=== PATIENT | male | born 1990 | race Caucasian/White ===

== ENCOUNTER 2023-03-24 12:36 | Outpatient (CLI) | payer OTHER, SELFPAY ==
[2023-03-24 19:00] LABS: Basophils Absolute Auto 0.1 K/mm3 (0.0-0.1); Basophils Percent Auto 1.3 % (0.2-1.2); Eosinophils Absolute Auto 0.5 K/mm3 (0-0.3); Eosinophils Percent Auto 7.8 % (0-4.4); Hematocrit 42.9 % (42.0-52.0); Hemoglobin 14.6 g/dL (14.0-18.0); Immature Granulocyte Absolute 0.01 K/mm3 (0.00-0.031); Immature Granulocyte Percent A 0.2 % (0-0.5); Lymphocytes Percent Auto 37.6 % (18.3-44.2); Mean Corpuscular Volume 88.3 fl (80-100); Mean Platelet Volume 9.3 fl (7.4-10.4); Monocytes Absolute Auto 0.4 K/mm3 (0.1-0.6); Monocytes Percent Auto 6.5 % (2.6-8.5); Neutrophils Absolute Auto 2.9 K/mm3 (1.3-6.7); Neutrophils Percent Auto 46.6 % (45.5-73.1); Platelet Count Result 274 k/mm3 (150-375); Red Blood Count 4.86 M/mm3 (4.6-6.20); Red Cell Distribution Width 12.6 % (11.5-14.5); White Blood Count 6.1 K/mm3 (4.5-10.0)
[2023-03-24 19:46] LABS: Alanine Aminotransferase 24 U/L (6-50); Albumin Level 4.2 g/dL (3.5-5.1); Alkaline Phosphatase 64 U/L (38-126); Anion Gap 5 mmol/L (8-16); Aspartate Amino Transferase 28 U/L (17-59); Bilirubin,Total 0.6 mg/dL (0.2-1.3); Blood Urea Nitrogen 11 mg/dL (9-20); Calcium 8.8 mg/dL (8.4-10.2); Carbon Dioxide 31 mmol/L (22-30); Chloride 105 mmol/L (98-107); Estimated Glomerular Filt Rate > 60; Glucose 89 mg/dL (65-110); Potassium 4.6 mmol/L (3.4-5.0); Sodium 141 mmol/L (137-145)
[2023-03-24 20:33] LABS: Hemoglobin A1C 5.5 % (<5.7)
== END 2023-03-24 12:37 | disposition home or self-care (01) ==
LOC: ANHGOSHLAB 12:38
PROVIDERS: PCP Family Medicine; Visit Provider Family Medicine
DX: D64.9 Anemia, unspecified (principal); E46 Unspecified protein-calorie malnutrition; E55.9 Vitamin D deficiency, unspecified; F10.10 Alcohol abuse, uncomplicated; R53.83 Other fatigue; R73.9 Hyperglycemia, unspecified; R74.8 Abnormal levels of other serum enzymes; Z13.220 Encounter for screening for lipoid disorders
CPT/HCPCS: 36415; 80053; 83036; 84439; 84443; 85025

== ENCOUNTER 2023-06-05 11:09 | Emergency (ER) | payer OTHER, SELFPAY ==
--- NOTE | ~2023-06-05 | XR_ITS ---
EXAMINATION: XR foot RT min 3V DATE: 06/05/2023 11:27 INDICATION: Right heel pain post injury TECHNIQUE: Dorsoplantar, two oblique and lateral views of the right foot were obtained. COMPARISON: None. FINDINGS: Alignment is normal. No fracture. Joint spaces are normal. Soft tissues are unremarkable. IMPRESSION: 1. Negative right foot radiographs. Reviewed, dictated and finalized at location A.
[2023-06-05 11:17] VITALS: BP 89/72; PULSE 87; RESP 16; TEMP 36.4; O2SAT 100
--- NOTE | 2023-06-05 11:37 | ED.LOWEXIN ---
HPI - Extremity Injury (Lower) General Chief Complaint: Extremity Injury, Lower Stated Complaint: Injured Right foot Time Seen by Provider: 06/05/23 11:40 Source: patient Mode of arrival: ambulatory Limitations: no limitations History of Present Illness HPI Narrative: 32 y/o male presented for c/o pain to the right foot after injury yesterday. States he was angry and struck the right foot down forcefully onto the floor, hitting the heel on the ground. Took Tylenol without much relief. Pain is 4 at rest, 7 with movement, 9 with walking. Reports inability to bear weight. Denies deformity, swelling, bruising, or numbness, tingling or weakness. Related Data Home Medications Medication Instructions Recorded Confirmed bupropion HCl 300 mg 24 hr tablet, 300 mg PO DAILY 06/05/23 06/05/23 extended release disulfiram 250 mg tablet 250 mg PO DIRECTED 06/05/23 06/05/23 gabapentin 300 mg capsule 300 mg PO TID 06/05/23 06/05/23 hydroxyzine pamoate 50 mg capsule 50 mg PO QID 06/05/23 06/05/23 methylphenidate HCl 36 mg 36 mg PO DAILY 06/05/23 06/05/23 tablet,extended release 24 hr (Concerta) naltrexone 50 mg tablet 50 mg PO DAILY 06/05/23 06/05/23 Allergies Allergy/AdvReac Type Severity Reaction Status Date / Time No Known Allergies Allergy Verified 06/05/23 11:25 Review of Systems Review of Systems: CONSTITUTIONAL: Denies body aches, fever, chills EYES: Denies visual changes ENT: Denies rhinorrhea, congestion CARDIOVASCULAR: Denies chest pain, palpitations, or edema. RESPIRATORY: Denies cough or dyspnea. GASTROINTESTINAL: Denies abdominal pain, nausea, vomiting, or diarrhea. SKIN: Denies rash, itching, or wounds. MUSCULOSKELETAL: reports right foot pain Denies back pain, joint pain, or myalgia. NEUROLOGIC: Denies headache, numbness, tingling, or weakness. All systems reviewed & are unremarkable except as noted in HPI and below PMFSH Past Medical History Medical History ADHD Anxiety Depression Migraine Family History Family History Sibling Asthma Grandparent Alcoholism Grandparent Cerebrovascular accident Mother Anxiety and depression Social History Social History Smoking packs per day: 1 Smoking cigarettes per day: 20.0 Years smoked: 11 Smoking pack-years: 11.00 Smoking status: Current every day smoker Tobacco type: cigarettes Alcohol intake: former Substance use: former Substance use type: marijuana, crack/cocaine and hallucinogens Other substance usage details: nothing since coming out of rehab Lack of Transportation: No Lack of Food: Never True Current Housing: I Have Housing Concerned About Future Housing: No Difficulty Paying Gas/Electric Bills: No Difficulty Paying for Meds: YES Currently Unemployed: YES Education: Bachelor's Degree Difficulty w/ Childcare or Family Care: No Comments At time of signature, I have reviewed and agree with nursing past medical, surgical, social and family history unless otherwise noted. Please see nursing chart for further information. There is no relevant family history pertinent to the presenting complaint Exam Narrative: GENERAL: Appears in some pain, in no acute distress. HEAD: Normocephalic, atraumatic. EYES: conjunctivae clear CHEST: Speaks in full sentences. No respiratory distress. HEART: Regular rate and rhythm. Normal and equal peripheral pulses. EXTREMITIES: Pain with palpation to the plantar surface of the heel, and wrapping around the posterior ankle. Right foot has normal strength and sensation, reports slightly limited range of motion at the ankle due to pain with movement. No swelling, redness, or ecchymosis, No open wounds, or obvious deformity; alignment normal, pulse palpable and equal bilaterally, skin warm, dry, pink. Ca
== END 2023-06-05 11:53 | disposition home or self-care (01) ==
PROVIDERS: Emergency Provider Nurse Practitioner Family; PCP Family Medicine
DX: M79.671 Pain in right foot (principal); F41.9 Anxiety disorder, unspecified; F32.A Depression, unspecified; F17.210 Nicotine dependence, cigarettes, uncomplicated
CPT/HCPCS: 73630; 99213; G0463

== ENCOUNTER 2023-07-06 17:17 | Emergency (ER) | payer OTHER, SELFPAY ==
[2023-07-06 17:25] VITALS: BP 114/75; PULSE 80; RESP 16; TEMP 36.8; O2SAT 100
--- NOTE | 2023-07-06 17:30 | ED.EXTPRO ---
HPI - Extremity Problem General Chief complaint: Extremity Problem,Nontraumatic Stated complaint: LOSING FEELING IN FEET AND LOWER LEGS Time Seen by Provider: 07/06/23 17:40 Mode of arrival: ambulatory Limitations: no limitations History of Present Illness HPI Narrative: 32-year-old male presents concern for bilateral numbness and tingling in his lower extremities. He reports started 2 weeks ago in the pedal aspect of both feet, has spread to the top of the feet in towards the ankles since that time. He denies any injury or trauma. He denies any back pain. He denies loss of bowel or bladder function, perianal anesthesia. You he denies redness, warmth. Reports mild swelling in the left ankle. Patient has a history of significant alcohol and drug abuse, he is currently sober and has a gabapentin prescription that he uses p.r.n. for cravings. MD Complaint: other (numbness and tingling) Related Data Home Medications Medication Instructions Recorded Confirmed bupropion HCl 300 mg 24 hr tablet, 300 mg PO DAILY 06/05/23 07/06/23 extended release disulfiram 250 mg tablet 250 mg PO DIRECTED 06/05/23 07/06/23 gabapentin 300 mg capsule 300 mg PO TID 06/05/23 07/06/23 hydroxyzine pamoate 50 mg capsule 50 mg PO QID 06/05/23 07/06/23 naltrexone 50 mg tablet 50 mg PO DAILY 06/05/23 07/06/23 Allergies Allergy/AdvReac Type Severity Reaction Status Date / Time No Known Allergies Allergy Verified 07/06/23 17:37 Review of Systems Review of Systems: CONSTITUTIONAL: Denies malaise, chills, sweats, or fever. CARDIOVASCULAR: Denies chest pain, palpitations, or edema. RESPIRATORY: Denies cough or dyspnea. SKIN: Denies rash or itching. Denies redness, warmth, open skin MUSCULOSKELETAL: Denies back pain, joint pain, or myalgia. Reports bilateral numbness and tingling in feet, ankles NEUROLOGIC: Denies weakness, or headache. All systems reviewed & are unremarkable except as noted in HPI and below PMFSH Past Medical History Medical History ADHD Anxiety Depression Migraine Family History Family History Sibling Asthma Grandparent Alcoholism Grandparent Cerebrovascular accident Mother Anxiety and depression Social History Social History Smoking packs per day: 1 Smoking cigarettes per day: 20.0 Years smoked: 11 Smoking pack-years: 11.00 Smoking status: Current every day smoker Tobacco type: cigarettes Alcohol intake: former Substance use: former Substance use type: marijuana, crack/cocaine and hallucinogens Other substance usage details: nothing since coming out of rehab Lack of Transportation: No Lack of Food: Never True Current Housing: I Have Housing Concerned About Future Housing: No Difficulty Paying Gas/Electric Bills: No Difficulty Paying for Meds: YES Currently Unemployed: YES Education: Bachelor's Degree Difficulty w/ Childcare or Family Care: No Comments At time of signature, agree with nursing past medical, surgical, social and family history. There is no relevant family history pertinent to the presenting complaint Exam Narrative: GENERAL: Well-appearing, well-nourished, and in no acute distress. HEAD: Normocephalic, atraumatic. EYES: PERRLA, sclera clear, and EOMI ENT: Nares clear. Mucous membranes moist. NECK: Supple. CHEST: No respiratory distress. Speaks in full sentences. HEART: Regular rate and rhythm. Normal peripheral pulses. EXTREMITIES: Normal range of motion. Normal strength, decreased sensation in bilateral feet. Mild lateral ankle edema on the left extremity SKIN: Warm, dry, no visible rash, no erythema, warmth, tenderness. NEURO: Alert and oriented x3. PSYCH: Normal mood and affect Course Course Emergency Course: Patient was advised to follow-up with his primar
== END 2023-07-06 17:50 | disposition home or self-care (01) ==
PROVIDERS: Emergency Provider Nurse Practitioner; PCP Family Medicine
DX: R20.0 Anesthesia of skin (principal); R20.2 Paresthesia of skin; F17.210 Nicotine dependence, cigarettes, uncomplicated; F41.9 Anxiety disorder, unspecified; F32.A Depression, unspecified
CPT/HCPCS: 99213; G0463

== ENCOUNTER 2023-07-11 18:31 | Emergency (ER) | payer OTHER, SELFPAY ==
[2023-07-11 19:28] VITALS: BP 116/68; PULSE 90; RESP 15; TEMP 36.8; O2SAT 100
--- NOTE | 2023-07-12 00:44 | PC.NURSE ---
patient informs this RN that he is going home and will come back tomorrow to be seen. Patient ambulates out of the waiting room without incident.
== END 2023-07-12 00:44 | disposition left against medical advice (07) ==
PROVIDERS: PCP Family Medicine
DX: Z53.21 Procedure and treatment not carried out due to patient leaving prior to being seen by health care provider (principal)
CPT/HCPCS: 99199

== ENCOUNTER 2023-07-12 13:52 | Emergency (ER) | payer OTHER, SELFPAY ==
[2023-07-12 14:17] VITALS: BP 102/61; PULSE 76; RESP 18; TEMP 36.8; O2SAT 100
--- NOTE | 2023-07-12 18:10 | ED.EXTPRO ---
HPI - Extremity Problem General Chief complaint: Extremity Problem,Nontraumatic Stated complaint: leg numbness bilateral Time Seen by Provider: 07/12/23 16:55 Source: patient Mode of arrival: ambulatory Limitations: no limitations History of Present Illness HPI Narrative: Patient is a 32-year-old male who presents to the ED with report of abnormal sensation to his bilateral lower extremities. Patient reports over the last 3 to 4 weeks, he feels he has had decreased sensation/[id number] in extremities at times. He states that it is slightly better in the morning, but worsens throughout the day after being on his feet. He states it began in his feet, but has began to spread up to his lower legs and also slightly into his fingertips. He states at times he feels he has trouble walking like his legs are not even underneath of him. Denies weakness or significant pain, though reports occasionally has a sensation of muscle fatigue in his legs. Denies wounds, fevers, injury. Patient does mention when the symptoms began is when he began more heavily using recreational nitrous oxide. He denies any other drug use. He does mention previous history of alcoholism, but states he has been sober for the last 5 months. Related Data Home Medications Medication Instructions Recorded Confirmed bupropion HCl 300 mg 24 hr tablet, 300 mg PO DAILY 06/05/23 07/06/23 extended release disulfiram 250 mg tablet 250 mg PO DIRECTED 06/05/23 07/06/23 gabapentin 300 mg capsule 300 mg PO TID 06/05/23 07/06/23 hydroxyzine pamoate 50 mg capsule 50 mg PO QID 06/05/23 07/06/23 naltrexone 50 mg tablet 50 mg PO DAILY 06/05/23 07/06/23 Allergies Allergy/AdvReac Type Severity Reaction Status Date / Time No Known Allergies Allergy Verified 07/11/23 19:31 Review of Systems Review of Systems: CONSTITUTIONAL: Denies fever, chills, or sweats. CARDIOVASCULAR: Denies chest pain. RESPIRATORY: Denies dyspnea. SKIN: See HPI. MUSCULOSKELETAL: See HPI. NEUROLOGIC: See HPI. All systems reviewed & are unremarkable except as noted in HPI and below PMFSH Past Medical History Medical History ADHD Anxiety Depression Migraine Family History Family History Sibling Asthma Grandparent Alcoholism Grandparent Cerebrovascular accident Mother Anxiety and depression Social History Social History Smoking packs per day: 1 Smoking cigarettes per day: 20.0 Years smoked: 11 Smoking pack-years: 11.00 Smoking status: Current every day smoker Tobacco type: cigarettes Alcohol intake: former Substance use: former Substance use type: marijuana, crack/cocaine and hallucinogens Other substance usage details: nothing since coming out of rehab Lack of Transportation: No Lack of Food: Never True Current Housing: I Have Housing Concerned About Future Housing: No Difficulty Paying Gas/Electric Bills: No Difficulty Paying for Meds: YES Currently Unemployed: YES Education: Bachelor's Degree Difficulty w/ Childcare or Family Care: No Exam Narrative: GENERAL: Well appearing, thin, non-toxic, in no acute distress. HEAD: Normocephalic, atraumatic. NECK: Supple. No adenopathy, no masses. RESPIRATORY: Airway patent, respirations nonlabored. Clear to auscultation bilaterally, no rales, rhonchi, wheezing. CARDIOVASCULAR: Regular rate and rhythm without murmurs, rubs, or gallops. Pedal pulses 2+ and equal bilaterally. MUSCULOSKELETAL: Moves all extremities. Strength/ROM intact without gross deformities or TTP. No edema. No calf tenderness. Sharp and dull sensation intact to lower extremities bilaterally, symmetric. Patient occasionally reported differences in sensation anterior versus lateral aspects of lower leg, though inconsistent on repeat examinations.
[2023-07-12 19:51] VITALS: BP 110/70; PULSE 75; RESP 18; O2SAT 100
== END 2023-07-12 19:52 | disposition home or self-care (01) ==
PROVIDERS: Emergency Provider Physician Assistant; PCP Family Medicine
DX: R20.2 Paresthesia of skin (principal); F18.10 Inhalant abuse, uncomplicated; F90.9 Attention-deficit hyperactivity disorder, unspecified type; F41.9 Anxiety disorder, unspecified; F32.A Depression, unspecified; F17.210 Nicotine dependence, cigarettes, uncomplicated
CPT/HCPCS: 99283

== ENCOUNTER 2023-07-18 14:40 | Outpatient (CLI) | payer OTHER, SELFPAY ==
[2023-07-18 19:22] LABS: Basophils Absolute Auto 0.1 K/mm3 (0.0-0.1); Basophils Percent Auto 0.9 % (0.2-1.2); Eosinophils Absolute Auto 0.6 K/mm3 (0-0.3); Eosinophils Percent Auto 7.3 % (0-4.4); Hematocrit 39.9 % (42.0-52.0); Hemoglobin 13.3 g/dL (14.0-18.0); Immature Granulocyte Absolute 0.01 K/mm3 (0.00-0.031); Immature Granulocyte Percent A 0.1 % (0-0.5); Lymphocytes Absolute Auto 2.08 K/mm3 (0.9-3.2); Lymphocytes Percent Auto 27.5 % (18.3-44.2); Mean Corpuscular HGB Conc 33.3 g/dl (32-36); Mean Corpuscular Hemoglobin 31.1 pg (26-34); Mean Corpuscular Volume 93.2 fl (80-100); Monocytes Absolute Auto 0.6 K/mm3 (0.1-0.6); Monocytes Percent Auto 7.8 % (2.6-8.5); Neutrophils Absolute Auto 4.3 K/mm3 (1.3-6.7); Neutrophils Percent Auto 56.4 % (45.5-73.1); Platelet Count Result 311 k/mm3 (150-375); Red Blood Count 4.28 M/mm3 (4.6-6.20); Red Cell Distribution Width 13.8 % (11.5-14.5); White Blood Count 7.6 K/mm3 (4.5-10.0)
[2023-07-18 19:53] LABS: Alanine Aminotransferase 19 U/L (6-50); Alkaline Phosphatase 51 U/L (38-126); Anion Gap 6 mmol/L (8-16); Aspartate Amino Transferase 29 U/L (17-59); Bilirubin,Total 0.3 mg/dL (0.2-1.3); Blood Urea Nitrogen 10 mg/dL (9-20); Calcium 8.9 mg/dL (8.4-10.2); Carbon Dioxide 30 mmol/L (22-30); Chloride 105 mmol/L (98-107); Estimated Glomerular Filt Rate > 60; Glucose 80 mg/dL (65-110); Phosphorus 4.1 mg/dL (2.5-4.5); Potassium 4.4 mmol/L (3.4-5.0); Sodium 141 mmol/L (137-145)
[2023-07-18 19:55] LABS: Iron 72 ug/dL (49-181)
[2023-07-18 20:13] LABS: Percent Iron Saturation 29 % (20-50)
[2023-07-18 21:00] LABS: Folic Acid > 20.0 ng/mL (2.76->20); Vitamin B12 > 1000.0 pg/mL (239-931)
[2023-07-20 21:37] LABS: Vitamin D 25 Hydroxy 48.9 ng/mL
[2023-07-23 12:42] LABS: Vitamin B6 46.5 ng/mL (2.1-21.7)
== END 2023-07-18 14:41 | disposition home or self-care (01) ==
LOC: ANHGOSHLAB 14:42
PROVIDERS: PCP Family Medicine; Visit Provider Clinical Nurse Specialist
DX: D64.9 Anemia, unspecified (principal); E46 Unspecified protein-calorie malnutrition; E55.9 Vitamin D deficiency, unspecified; F10.10 Alcohol abuse, uncomplicated; R53.83 Other fatigue; R73.9 Hyperglycemia, unspecified; R74.8 Abnormal levels of other serum enzymes; Z13.220 Encounter for screening for lipoid disorders
CPT/HCPCS: 36415; 80053; 82306; 82607; 82728; 82746; 83540; 83550; 83735; 84100; 84207; 85025

== ENCOUNTER 2023-08-08 08:20 | Outpatient (CLI) | payer OTHER, SELFPAY ==
[2023-08-08 19:42] LABS: Cholesterol 157 mg/dL (0-200); HDL Direct 36 mg/dL; Triglycerides 75 mg/dL (<150)
[2023-08-08 19:52] LABS: LDL Cholesterol Direct 98 mg/dL; Transferrin 184 mg/dL (206-381)
[2023-08-08 19:56] LABS: Alanine Aminotransferase 27 U/L (6-50); Albumin Level 4.5 g/dL (3.5-5.1); Alkaline Phosphatase 54 U/L (38-126); Anion Gap 6 mmol/L (8-16); Aspartate Amino Transferase 32 U/L (17-59); Bilirubin,Total 0.7 mg/dL (0.2-1.3); Blood Urea Nitrogen 12 mg/dL (9-20); Calcium 9.5 mg/dL (8.4-10.2); Carbon Dioxide 29 mmol/L (22-30); Chloride 105 mmol/L (98-107); Estimated Glomerular Filt Rate > 60; Glucose 87 mg/dL (65-110); Potassium 4.2 mmol/L (3.4-5.0); Sodium 140 mmol/L (137-145)
[2023-08-08 20:34] LABS: Hepatitis B Surface Antigen Negative (Negative)
[2023-08-08 20:39] LABS: HAV RESULT Negative (Negative); Hepatitis B Core IgM Result Negative (Negative)
[2023-08-08 20:47] LABS: Basophils Absolute Auto 0.1 K/mm3 (0.0-0.1); Basophils Percent Auto 1.4 % (0.2-1.2); Eosinophils Absolute Auto 0.3 K/mm3 (0-0.3); Hematocrit 44.1 % (42.0-52.0); Hemoglobin 14.7 g/dL (14.0-18.0); Immature Granulocyte Absolute 0.01 K/mm3 (0.00-0.031); Immature Granulocyte Percent A 0.2 % (0-0.5); Lymphocytes Absolute Auto 2.15 K/mm3 (0.9-3.2); Lymphocytes Percent Auto 42.7 % (18.3-44.2); Mean Corpuscular HGB Conc 33.3 g/dl (32-36); Mean Corpuscular Hemoglobin 30.6 pg (26-34); Mean Corpuscular Volume 91.7 fl (80-100); Mean Platelet Volume 10.3 fl (7.4-10.4); Monocytes Absolute Auto 0.3 K/mm3 (0.1-0.6); Monocytes Percent Auto 6.4 % (2.6-8.5); Neutrophils Absolute Auto 2.2 K/mm3 (1.3-6.7); Neutrophils Percent Auto 44.3 % (45.5-73.1); Platelet Count Result 332 k/mm3 (150-375); Red Blood Count 4.81 M/mm3 (4.6-6.20); Red Cell Distribution Width 12.6 % (11.5-14.5)
[2023-08-08 20:51] LABS: Hepatitis C Virus Antibody Negative (Negative)
[2023-08-08 21:28] LABS: Hemoglobin A1C 4.9 % (<5.7)
[2023-08-10 18:46] LABS: Methylmalonic Acid 96 nmol/L (87-318)
[2023-08-11 10:05] LABS: SS-A <1.0; SS-B <1.0
[2023-08-11 11:20] LABS: Homocysteine 44.9 umol/L (<11.4)
[2023-08-11 12:52] LABS: Vitamin B6 28.7 ng/mL (2.1-21.7)
[2023-08-12 03:05] LABS: Zinc 87 mcg/dL (60-130)
[2023-08-13 06:25] LABS: Vitamin B1 8 nmol/L (8-30)
== END 2023-08-08 08:21 | disposition home or self-care (01) ==
LOC: ANHGOSHLAB 08:23
PROVIDERS: PCP Family Medicine; Visit Provider Student in an Organized Health Care Education/Training Program
DX: G62.9 Polyneuropathy, unspecified (principal); Z13.220 Encounter for screening for lipoid disorders; R74.8 Abnormal levels of other serum enzymes; E46 Unspecified protein-calorie malnutrition; D64.9 Anemia, unspecified; F10.10 Alcohol abuse, uncomplicated; E55.9 Vitamin D deficiency, unspecified; R73.9 Hyperglycemia, unspecified; R53.83 Other fatigue
CPT/HCPCS: 36415; 80053; 80061; 80074; 82525; 83036; 83090; 83921; 84207; 84425; 84443; 84466; 84590; 84630; 85025; 86235; 86334; 86335

== ENCOUNTER 2023-08-30 10:09 | Outpatient (CLI) | payer OTHER, SELFPAY ==
--- NOTE | 2023-08-30 11:00 | NEURO_ITS ---
Impression: # Complains of numbness of hands and feet for about 3 months with no history of acute illness. # Neuropathy involving lower extremities more than upper extremities, motor/sensory of axonal type. # Needle/EMG exam with neurogenic changes but no active fibs or myotonia. Nerve Conduction Studies Anti Sensory Summary Table Stim Site NR Peak (ms) P-T Amp (?V) Site1 Site2 Delta-P (ms) Dist (cm) Jasper (m/s) Left Median Anti Sensory (2-3nd Digit) Wrist 4.0 58.6 Wrist 2-3nd Digit 4.0 14.0 35 Wrist 4.0 47.8 Wrist 2-3nd Digit 4.0 14.0 35 Right Median Anti Sensory (2-3nd Digit) Wrist 4.4 14.7 Wrist 2-3nd Digit 4.4 14.0 32 Wrist 4.3 44.0 Wrist 2-3nd Digit 4.4 14.0 32 Left Radial Anti Sensory (Base 1st Digit) Wrist 2.8 24.1 Wrist Base 1st Digit 2.8 0.0 Right Radial Anti Sensory (Base 1st Digit) Wrist 3.7 20.2 Wrist Base 1st Digit 3.7 0.0 Left Sup Fibular Anti Sensory (Ant Lat Mall) NO RESPONSE 14 cm NR 14 cm Ant Lat Mall 16.0 Right Sup Fibular Anti Sensory (Ant Lat Mall) 14 cm 5.3 11.6 14 cm Ant Lat Mall 5.3 16.0 30 Left Sural Anti Sensory (Lat Mall) NO RESPONSE Calf NR Calf Lat Mall 16.0 Right Sural Anti Sensory (Lat Mall) NO RESPONSE Calf NR Calf Lat Mall 16.0 Left Ulnar Anti Sensory (5th Digit) Wrist 4.3 36.0 Wrist 5th Digit 4.3 14.0 33 Right Ulnar Anti Sensory (5th Digit) Wrist 4.2 38.1 Wrist 5th Digit 4.2 14.0 33 Motor Summary Table Stim Site NR Onset (ms) O-P Amp (mV) Site1 Site2 Delta-0 (ms) Dist (cm) Jasper (m/s) Left Median Motor (Abd Poll Brev) Wrist 3.9 3.8 Elbow Wrist 6.6 34.0 52 Elbow 10.5 5.4 Right Median Motor (Abd Poll Brev) Wrist 4.4 4.6 Elbow Wrist 6.2 31.0 50 Elbow 10.6 3.0 Left Peroneal Motor (Vastus Med) NO RESPONSE Ankle NR Popit Ankle 0.0 Popit NR Right Peroneal Motor (Vastus Med) NO RESPONSE Ankle NR Popit Ankle 0.0 Popit NR Left Tibial Motor (Abd Willis Brev) Ankle 6.8 0.3 Knee Ankle 13.7 48.0 35 Knee 20.5 0.4 Right Tibial Motor (Abd Willis Brev) NO RESPONSE Ankle NR Knee Ankle 0.0 Knee NR Left Ulnar Motor (Abd Dig Minimi) Wrist 3.7 7.3 A Elbow Wrist 6.4 32.0 50 A Elbow 10.1 7.0 Right Ulnar Motor (Abd Dig Minimi) Wrist 3.4 9.4 A Elbow Wrist 6.6 31.0 47 A Elbow 10.0 8.2 B Elbow Wrist 4.6 23.0 50 B Elbow 8.0 7.8 F Wave Studies NR F-Lat (ms) L-R F-Lat (ms) Left Median (Mrkrs) (Abd Poll Brev) 33.12 0.33 Right Median (Mrkrs) (Abd Poll Brev) 33.45 0.33 Left Peroneal (Mrkrs) (EDB) NO RESPONSE NR Right Peroneal (Mrkrs) (EDB) NO RESPONSE NR Left Tibial (Mrkrs) (Abd Hallucis) 68.07 2.92 Right Tibial (Mrkrs) (Abd Hallucis) 65.15 2.92 Left Ulnar (Mrkrs) (Abd Dig Min) 33.53 0.33 Right Ulnar (Mrkrs) (Abd Dig Min) 20.16 13.37 EMG Side Muscle Nerve Root Ins Act Fibs Amp Dur Recrt Comment Right 1stDorInt Ulnar C8-T1 Nml Nml Nml >12ms Reduced Right Ext Indicis Radial (Post Int) C7-8 Nml Nml Nml Nml Nml Right Ext Digitorum Radial (Post Int) C7-8 Nml Nml Nml Nml Nml Right BrachioRad Radial C5-6 Nml Nml Nml Nml Nml Right PronatorTeres Median C6-7 Nml Nml Nml Nml Nml
== END 2023-08-30 10:10 | disposition home or self-care (01) ==
LOC: ANHNEURO 10:11
PROVIDERS: PCP Family Medicine; Visit Provider Clinical Nurse Specialist
DX: R20.0 Anesthesia of skin (principal); G62.9 Polyneuropathy, unspecified
CPT/HCPCS: 95886; 95913

== ENCOUNTER 2023-09-06 14:00 | Outpatient (RCR) | payer OTHER, SELFPAY ==
--- NOTE | 2023-08-17 16:56 | OPREHPOC ---
Outpatient Therapy Plan of Care This is a Multidisciplinary Plan of Care that may contain components documented by all disciplines (PT, OT, and ST.) PT Problem 1 PT Problem #1 Knowledge Deficit PT Goal 1 Goal Pt to be IND with issued HEP Target Visit 4 PT Problem 2 PT Problem #2 Impaired Gait PT Goal 1 Goal Pt to improve his 2 min walk distance from 360ft to 420ft Target Visit 4 PT Goal 2 Goal Pt to ambulate with an equal stride length and with a good heel-toe pattern Target Visit 4 PT Problem 3 PT Problem #3 Impaired Strength PT Goal 1 Goal Pt to be able to demonstrate active ankle dorsiflexion in standing Target Visit 4 PT Goal 2 Goal Pt to demonstrate global ankle strenght of 4/5 Target Visit 4 PT Problem 4 PT Problem #4 Impaired Balance PT Goal 1 Goal Pt to demonstrate a 20/24 on the DGI Target Visit 4 PT Problem 5 PT Problem #5 Impaired Functional Mobil PT Goal 1 Goal Pt to be able to demonstrate a floor to stand transfer without UE support Target Visit 4 PT Goal 2 Goal pt to be able to lift and carry 30lb from ground level.
--- NOTE | 2023-08-17 16:56 | PTOPEVAL1 ---
Assessment and note entered by Suman Bustillos, PT, DPT Evaluation Information Assessment Status Evaluation Diagnosis polyneuropathy Onset 2 months Subjective Information Pt reports pola numbness and tingling in his BLE that has been progressive since the beginning of July. He states he did have an ankle sprain in may but doesnt think this is related, he does state this could be a vitamin deficiency. He states he has been to a number of doctors without any answers. He states he has numbness, decreased reflexes, and weakness throughout his legs. He states walking longer distances he will start to have difficulty walking like I forgot how to walk . He states he notices himself dragging his feet and loosing his balance. His instability increases throughout the date. He declines any falls, but a couple of near misses. He declines any back pain. Reported Pain Level Pain Score 0: Self Report Assessment PT Clinical Summary Ricardo presents to therapy today for his initial evaluation with a diagnosis of polyneuropathy. Today he demonstrates decreased LE strength with his ankles being the most affected, his ankle strength is grossly 3/5. He ambulates with a decreased gait speed, an ataxic pattern, decreased heel strike, and with arms held in high guard. He demonstrates good static balance but decreased dynamic balance. Skilled therapy services are indicated to address the balance and strengt deficits noted above, to improve mobility, and to return to PLOF. Plan of Care Interventions Check Out for Orthotic/Pr,Electrical Stimulation, Gait Training,Manual Therapy,Neuro Re-education, Patient/Caregiver Educati,Therapeutic Activities, Therapeutic Exercise PT Services Indicated Yes Treatment Frequency and 1x/wk for 4 visits, per pt request Duration These treatments will address the objective and functional deficits as defined above. The patient will be advanced safely and appropriately in order for the patient to progress towards his/her prior level of function. Additional exercises will be introduced and as well as a comprehensive home exercise program upon discharge, if needed, ?to ensure carryover of functional gains achieved in the clinic. This treatment plan has been reviewed and agreement upon by the patient.
--- NOTE | 2023-09-01 16:03 | PCPTNOTE ---
Patient reports he forgot to check his schedule and was at work.
--- NOTE | 2023-09-14 15:50 | PCPTNOTE ---
Patient did not show up for scheduled appointment this date. Called to follow up, he has been rescheduled for 09/28.
--- NOTE | 2023-09-28 09:28 | PTOPDC ---
Assessment and note entered by Suman Bustillos, PT, DPT Evaluation Information Assessment Status Discharge - Pt Not Present Diagnosis polyneuropathy Onset 2 months Subjective Information Pt did not show up to scheduled appointment this date. This was his 3rd no show and per our attendance policy he will be discharged at this time. Assessment PT Clinical Summary Pt attended 3 visits from 08/17/23 to 09/28/23. If he needs additional therapy at a later date he will need a new order.
== END 2023-09-28 10:28 | disposition home or self-care (01) ==
LOC: ANHGOSHPT 14:00
PROVIDERS: PCP Family Medicine; Visit Provider Student in an Organized Health Care Education/Training Program
DX: E53.8 Deficiency of other specified B group vitamins (principal); G32.0 Subacute combined degeneration of spinal cord in diseases classified elsewhere; G62.9 Polyneuropathy, unspecified
CPT/HCPCS: 97110; 97112; 97162; 99199

== ENCOUNTER 2023-09-25 08:40 | Outpatient (CLI) | payer OTHER, SELFPAY ==
--- NOTE | ~2023-09-25 | MR_ITS ---
MRI of the thoracic spine Clinical History: Neuropathy, vitamin B deficiency Technique: Axial T2-weighted and gradient images, and sagittal T1-weighted, T2-weighted, and STIR negar ges were acquired. Following intravenous administration of 13 cc MultiHance gadolinium, T1-weighted f at-sat imaging was performed in the axial and sagittal planes. Findings: There is no fracture or subluxation of the thoracic spine. Vertebral bodies maintain normal height and alignment. No suspicious bone marrow signal abnormality seen. No disc bulge or herniation seen at any thoracic level. There is no spinal canal stenosis or cord com pression thoracic spine. No epidural mass or collection seen. No abnormal signal seen in the spinal cord itself. Paravertebral soft tissues are unremarkable. No ab normal postcontrast enhancement identified. Impression: Unremarkable exam. Reviewed, dictated and finalized at [facility]. NG SPONGER Impression: Unremarkable exam.
--- NOTE | ~2023-09-25 | MR_ITS ---
MRI of the lumbar spine Clinical History: Group B vitamin deficiency, neuropathy Technique: Axial T2-weighted images, and sagittal T1-weighted, T2-weighted, and T2 fat-sat images wer e acquired. Following intravenous administration of 13 cc MultiHance gadolinium, T1-weighted fat-sat imaging was performed in the axial and sagittal planes. Findings: There is no fracture or subluxation of the lumbar spine. Visualized maintain normal height and alignment. No suspicious bone marrow signal abnormality seen. Intervertebral discs maintain normal signal and position throughout the lumbar spine. No disc bulge o r herniation seen in the lumbar spine. No spinal canal stenosis or neural foraminal narrowing seen at any lumbar level. No epidural mass or collection seen. Cauda equina unremarkable. Paravertebral soft tissues are unrema rkable. No abnormal postcontrast enhancement identified. Impression: Unremarkable exam. Reviewed, dictated and finalized at [facility]. TRANSPORT DRIVER Impression: Unremarkable exam.
--- NOTE | ~2023-09-25 | MR_ITS ---
MRI of the cervical spine Clinical History: Nerve issues, deficiency of group B vitamins, neuropathy Technique: Axial T2-weighted and gradient images, and sagittal T1-weighted, T2-weighted, and STIR negar ges were acquired. Following intravenous administration of 13 cc MultiHance gadolinium, T1-weighted f at-sat imaging was performed in the axial and sagittal planes. Findings: There is no fracture or subluxation of the cervical spine. Vertebral bodies maintain normal height and alignment. No suspicious bone marrow signal abnormality seen. At C2-C3, there is no disc bulge or herniation. No spinal canal stenosis, cord compression, or neural foraminal narrowing. At C3-C4, there is minimal disc ossify complex and minimal right facet arthropathy, with minimal righ t neural foraminal narrowing. No left neural foraminal narrowing. No central canal stenosis or cord c ompression. At C4-C5, there is no significant disc bulge or herniation. No spinal canal stenosis, cord compressio n, or neural foraminal narrowing. At C5-C6, there is no significant disc bulge or herniation. No spinal canal stenosis or cord compress ion. Possible minimal neural foraminal narrowing with minimal facet arthropathy. At C6-C7, there is no disc bulge or herniation. No spinal canal stenosis or cord compression. There i s left neural foraminal narrowing. Possible minimal right neural foraminal narrowing. There is minimal focal prominence of the central canal spinal cord at the C6 level, which could refle ct minimal syrinx. No other abnormal signal seen in the spinal cord. No epidural mass or collection s een. Paravertebral soft tissues are unremarkable. No abnormal postcontrast enhancement identified. Impression: Questionable minimal, focal syrinx at the C6 level. Minimal degenerative spondylosis, as above. Reviewed, dictated and finalized at location M. STONE SETTER Impression: Questionable minimal, focal syrinx at the C6 level. Minimal degenerative spondylosis, as above.
== END 2023-09-25 08:41 | disposition home or self-care (01) ==
PROVIDERS: PCP Family Medicine; Visit Provider Student in an Organized Health Care Education/Training Program
DX: G62.9 Polyneuropathy, unspecified (principal); G32.0 Subacute combined degeneration of spinal cord in diseases classified elsewhere; E53.8 Deficiency of other specified B group vitamins; M43.02 Spondylolysis, cervical region
CPT/HCPCS: 72156; 72157; 72158; A9577

== ENCOUNTER 2023-11-14 10:58 | Emergency (ER) | payer OTHER, SELFPAY ==
[2023-11-14] VITALS (25 sets, daily range): BP systolic 102–116; BP diastolic 65–71; PULSE 47–72; RESP 12–28; TEMP 36.4; O2SAT 99–100
--- NOTE | ~2023-11-14 | XR_ITS ---
XR chest 2V DATE: 11/14/2023 11:29 INDICATION: Midsternal chest pain and tightness, shortness of breath TECHNIQUE: AP and lateral views COMPARISON: None FINDINGS: There is bilateral hyperinflation. No pulmonary infiltrate or consolidation, pleural effusi on or pulmonary vascular congestion or pneumothorax is detected. Normal heart size. No hilar or mediastinal enlargement. Included skeletal structures are unremarkable. IMPRESSION: Bilateral hyperinflation No active cardiopulmonary disease Reviewed, dictated and finalized at location B. [facility]
--- NOTE | 2023-11-14 11:00 | ECG_ITS ---
Measurements Intervals [place] Rate: 69 P: 78 AR: 147 QRS: 84 QRSD: 85 T: 82 QT: 388 QTc: 416 Interpretive Statements SINUS RHYTHM WITH SINUS ARRHYTHMIA BASELINE ARTIFACT- I, II, III, AVR, AVL, AVF, V1-V6 NORMAL ECG NO PREVIOUS ECG AVAILABLE FOR COMPARISON Electronically Signed On 11-14-2023 14:43:30 SCHEDULING ANALYST by David Fan D.O.
[2023-11-14 11:21] LABS: Basophils Percent Auto 0.3 % (0.2-1.2); Eosinophils Absolute Auto 0.1 K/mm3 (0-0.3); Eosinophils Percent Auto 0.8 % (0-4.4); Hemoglobin 12.5 g/dL (14.0-18.0); Immature Granulocyte Absolute 0.02 K/mm3 (0.00-0.031); Immature Granulocyte Percent A 0.3 % (0-0.5); Lymphocytes Absolute Auto 2.71 K/mm3 (0.9-3.2); Lymphocytes Percent Auto 44.6 % (18.3-44.2); Mean Corpuscular HGB Conc 32.9 g/dl (32-36); Mean Corpuscular Hemoglobin 29.3 pg (26-34); Mean Platelet Volume 9.1 fl (7.4-10.4); Monocytes Absolute Auto 0.4 K/mm3 (0.1-0.6); Monocytes Percent Auto 6.9 % (2.6-8.5); Neutrophils Absolute Auto 2.9 K/mm3 (1.3-6.7); Neutrophils Percent Auto 47.1 % (45.5-73.1); Platelet Count Result 278 k/mm3 (150-375); Red Blood Count 4.27 M/mm3 (4.6-6.20); Red Cell Distribution Width 15.1 % (11.5-14.5); White Blood Count 6.1 K/mm3 (4.5-10.0)
[2023-11-14] MEDS: ASPIRIN 81 MG CHEWABLE TABLET 324 MG PO (11:25)
[2023-11-14 11:31] LABS: Alanine Aminotransferase 25 U/L (6-50); Albumin Level 4.3 g/dL (3.5-5.1); Alkaline Phosphatase 57 U/L (38-126); Anion Gap 11 mmol/L (8-16); Aspartate Amino Transferase 29 U/L (17-59); Bilirubin,Total 0.8 mg/dL (0.2-1.3); Blood Urea Nitrogen 17 mg/dL (9-20); Calcium 8.9 mg/dL (8.4-10.2); Carbon Dioxide 23 mmol/L (22-30); Chloride 104 mmol/L (98-107); Estimated CRCL calculation 101 ml/min; Estimated Glomerular Filt Rate > 60; Glucose 85 mg/dL (65-110); Lipase 125 U/L (23-300); Potassium 4.2 mmol/L (3.4-5.0); Sodium 138 mmol/L (137-145)
[2023-11-14 11:35] LABS: Partial Thromboplastin Time 25.8 SECONDS (22.3-36.8)
[2023-11-14 11:42] LABS: Troponin I < 0.012 ng/mL (0.000-0.034)
--- NOTE | 2023-11-14 12:14 | ED.CHESTPAIN ---
HPI - Chest Pain General Chief Complaint: Chest Pain Stated Complaint: Chest pain Time Seen by Provider: 11/14/23 11:27 33-year-old male presenting to the emergency department for evaluation for an episode of heart palpitations and chest pain. Patient reports he was just doing some light cleaning when he bent over and had some onset of dizziness when he stood up. Patient states he felt he was having some heart palpitations for 30 seconds to a minute. Patient states he then had some discomfort into the left arm and patient became concerned and presented to the emergency department for evaluation. Upon arrival to the emergency department patient states he no longer has any heart palpitations and that he has no chest pain or pain down the left arm. Patient states he suspects he drinks at 1000 mg of caffeine a day. Related Data Home Medications Medication Instructions Recorded Confirmed gabapentin 300 mg capsule 300 mg PO TID 06/05/23 10/12/23 Allergies Allergy/AdvReac Type Severity Reaction Status Date / Time No Known Allergies Allergy Verified 10/12/23 15:18 Review of Systems Review of Systems: All systems reviewed & are unremarkable except as noted in HPI and below PMFSH Past Medical History Medical History ADHD Anxiety Depression Migraine Family History Family History Sibling Asthma Grandparent Alcoholism Grandparent Cerebrovascular accident Mother Anxiety and depression Social History Social History Smoking packs per day: 1 Smoking cigarettes per day: 20.0 Years smoked: 11 Smoking pack-years: 11.00 Smoking status: Current every day smoker Tobacco type: cigarettes Alcohol intake: former Substance use: current Substance use type: marijuana and inhalants Other substance usage details: nothing since coming out of rehab Lack of Transportation: No Lack of Food: Never True Current Housing: I Have Housing Concerned About Future Housing: No Difficulty Paying Gas/Electric Bills: YES Difficulty Paying for Meds: No Currently Unemployed: No Education: Bachelor's Degree Difficulty w/ Childcare or Family Care: No Exam Narrative: APPEARANCE: Well appearing, no pain, no distress, well-nourished. HEAD: normocephalic, atraumatic. EYES: PERRLA/EOMI, conjunctivae clear. NOSE: Normal no drainage EARS:TMS clear with good light reflex. THROAT: Pharynx clear, no exudate. NECK: Supple. No adenopathy, no masses. RESPIRATORY: Airway patent, respirations nonlabored. Clear to auscultation bilaterally, no rales, rhonchi, wheezing. CARDIOVASCULAR: Regular rate and rhythm without murmurs rubs or gallops. ABDOMINAL: Soft, nontender, nondistended, normal bowel sounds MUSCULOSKELETAL: Moves all extremities. Strength/ROM intact, No edema, No calf tenderness. NEURO: Alert. Cranial nerves II through XII intact. grossly intact SKIN: Warm, dry. Normal Color Course Course Emergency Course: 33-year-old male presenting emergency department for evaluation of heart palpitations. EKG showed normal sinus rhythm. Patient had negative serial troponins. Chest x-ray showed no acute cardiopulmonary abnormality. Patient reports pain is resolved upon arrival to the emergency department. Patient was encouraged to decrease his caffeine intake and to have close follow-up with his primary care physician for additional outpatient cardiac testing. All questions concerns were addressed. Patient was also educated on reasons to return to the emergency department. Vital Signs Vital signs: Vital Signs Temperature 97.6 F 11/14/23 11:11 Pulse Rate 72 11/14/23 11:11 Respiratory Rate 16 11/14/23 11:11 Blood Pressure 108/70 11/14/23 11:11 Pulse Oximetry 100 11/14/23 11:11 Oxygen Delivery Room Air 11/14/23 11:11
[2023-11-14 12:46] LABS: Magnesium 2.1 mg/dL (1.6-2.3)
--- NOTE | 2023-11-14 14:00 | ECG_ITS ---
Measurements Intervals [place] Rate: 51 P: 38 ND: 111 QRS: 83 QRSD: 94 T: 80 QT: 482 QTc: 446 Interpretive Statements SINUS BRADYCARDIA WITH SHORT ND INTERVAL BASELINE ARTIFACT- I, II, III, AVR, AVL, AVF, V1 BORDERLINE ECG NO PREVIOUS ECG AVAILABLE FOR COMPARISON Electronically Signed On 11-14-2023 14:11:33 [employer] by David Fan D.O.
[2023-11-14 14:22] LABS: Troponin I < 0.012 ng/mL (0.000-0.034)
== END 2023-11-14 15:00 | disposition home or self-care (01) ==
PROVIDERS: Emergency Provider Emergency Medicine; PCP Family Medicine
DX: R00.2 Palpitations (principal); R07.9 Chest pain, unspecified; F90.9 Attention-deficit hyperactivity disorder, unspecified type; F41.9 Anxiety disorder, unspecified; F32.A Depression, unspecified; F17.210 Nicotine dependence, cigarettes, uncomplicated; R00.1 Bradycardia, unspecified
CPT/HCPCS: 36415; 71046; 80053; 83690; 83735; 84443; 84484; 85025; 85610; 85730; 93005; 99284; A9270

== ENCOUNTER 2024-03-09 17:05 | Emergency (ER) | payer OTHER, SELFPAY ==
[2024-03-09 17:27] VITALS: BP 127/87; PULSE 84; RESP 16; TEMP 36.8; O2SAT 100
[2024-03-09 17:50] LABS: Appearance Urine Clear (Clear); Bilirubin Urine Negative (Negative); Blood Urine Negative (Negative); Color Urine Yellow (Yellow); Glucose Urine UA Negative (Negative); Ketones Urine Negative (Negative); Leukocyte Esterase Ur Negative LEU/UL (Negative); Nitrate Urine Negative (Negative); Protein Urine Negative (Negative); Specific Grav Ur 1.014 (1.001-1.035); Urobilinogen Urine 0.2 mg/dL (<2.0); pH Urine 5.5 (5.0-9.0)
[2024-03-09 17:51] LABS: Basophils Percent Auto 0.5 % (0.2-1.2); Eosinophils Absolute Auto 0.1 K/mm3 (0-0.3); Eosinophils Percent Auto 1.1 % (0-4.4); Hematocrit 51.3 % (42.0-52.0); Hemoglobin 17.2 g/dL (14.0-18.0); Immature Granulocyte Absolute 0.02 K/mm3 (0.00-0.031); Immature Granulocyte Percent A 0.3 % (0-0.5); Lymphocytes Absolute Auto 3.42 K/mm3 (0.9-3.2); Mean Corpuscular HGB Conc 33.5 g/dl (32-36); Mean Corpuscular Hemoglobin 30.4 pg (26-34); Mean Corpuscular Volume 90.8 fl (80-100); Mean Platelet Volume 8.9 fl (7.4-10.4); Monocytes Absolute Auto 0.3 K/mm3 (0.1-0.6); Neutrophils Absolute Auto 4.1 K/mm3 (1.3-6.7); Neutrophils Percent Auto 51.1 % (45.5-73.1); Platelet Count Result 315 k/mm3 (150-375); Red Blood Count 5.65 M/mm3 (4.6-6.20); Red Cell Distribution Width 12.5 % (11.5-14.5)
[2024-03-09 17:54] LABS: Add Urine Microscopic? NO
[2024-03-09 18:03] LABS: Alanine Aminotransferase 20 U/L (6-50); Alkaline Phosphatase 72 U/L (38-126); Anion Gap 11 mmol/L (4-12); Aspartate Amino Transferase 26 U/L (17-59); Bilirubin,Total 0.4 mg/dL (0.2-1.3); Blood Urea Nitrogen 6 mg/dL (9-20); Calcium 8.8 mg/dL (8.4-10.2); Carbon Dioxide 30 mmol/L (22-30); Chloride 105 mmol/L (98-107); Estimated CRCL calculation 105 ml/min; Estimated Glomerular Filt Rate > 60; Glucose 107 mg/dL (65-110); Potassium 3.8 mmol/L (3.4-5.0); Sodium 146 mmol/L (137-145)
[2024-03-09 18:12] LABS: Amphetamine Screen Urine Negative (Negative); Barbiturate Screen Urine Negative (Negative); Benzodiazepines Screen Urine Negative (Negative); Cannabinoid Screen Urine Negative (Negative); Cocaine Screen Urine Negative (Negative); Methadone Screen Urine Negative (Negative); Opiate Screen Urine Negative (Negative); Phencyclidine Screen Urine Negative (Negative)
[2024-03-09 18:25] LABS: Influenza A QL RT-PCR Negative (Negative); Influenza B QL RT-PCR Negative (Negative); RSV RNA, RT-PCR Negative (Negative); SARS-CoV-2 RNA PCR Negative (Negative)
[2024-03-09 18:32] LABS: Ethanol 317 mg/dL (<10)
[2024-03-09 18:40] LABS: Thyroid Stimulating Hormone Reflex 0.796 uIU/mL (0.465-4.68)
[2024-03-09] MEDS: NICOTINE (*PBKC) 21 MG PATCH 1 PATCH TRANSDERM (19:04)
--- NOTE | 2024-03-09 19:15 | PC.NURSE ---
Report received from MINERVA Davila. Assumed care of patient at this time. Sitter at bedside.
--- NOTE | 2024-03-09 19:40 | ED.GENADULT ---
HPI - General Adult General Chief complaint: Psychiatric Symptoms <Felix Girard MD - Last Filed: 03/11/24 07:24> Stated complaint: suicide attempt <Felix Girard MD - Last Filed: 03/11/24 07:24> Time Seen by Provider: 03/09/24 17:41 <Felix Girard MD - Last Filed: 03/11/24 07:24> History of Present Illness HPI narrative: Patient is a 33-year-old male who presents ER with suicidal ideation and near attempt. Reports he had the intention to shoot himself today with his gun however he is unable to locate any ammunition to carry out the deed. Was recently discharged from [facility] where he was getting help for his depression and alcoholism. He reports he has been drinking alcohol today. His stressors are financial issues. Denies fevers or chills or sweats. No other medical complaint at this time. <Felix Girard MD - Last Filed: 03/11/24 07:24> Related Data Home medications: Home Medications Medication Instructions Recorded Confirmed gabapentin 300 mg capsule 300 mg PO TID 06/05/23 12 <Felix Girard MD - Last Filed: 03/11/24 07:24> Allergies/adverse reactions: Allergies Allergy/AdvReac Type Severity Reaction Status Date / Time No Known Allergies Allergy Verified 03/09/24 17:40 <Felix Girard MD - Last Filed: 03/11/24 07:24> Review of Systems Review of Systems: All systems reviewed & are unremarkable except as noted in HPI and below <Felix Girard MD - Last Filed: 03/11/24 07:24> Constitutional: Constitutional: Reports no additional constitutional complaints <Felix Girard MD - Last Filed: 03/11/24 07:24> ENT: Reports system reviewed and no additional complaints, except as documented <Felix Girard MD - Last Filed: 03/11/24 07:24> Cardiovascular: Cardiovascular: Reports no additional cardiovascular complaints <Felix Girard MD - Last Filed: 03/11/24 07:24> Respiratory: Respiratory: Reports no additional respiratory complaints <Felix Girard MD - Last Filed: 03/11/24 07:24> Gastrointestinal: Gastrointestinal: Reports no additional gastrointestinal complaints <Felix Girard MD - Last Filed: 03/11/24 07:24> Integumentary/Breasts: Skin/Breast: Reports system reviewed and no additional complaints, except as docu <Felix Girard MD - Last Filed: 03/11/24 07:24> Psychiatric: Psychiatric: Reports anxiety, Reports depression, Denies homicidal ideation and Reports suicidal ideation <Felix Girard MD - Last Filed: 03/11/24 07:24> PMFSH Past Medical History Medical History: Medical History ADHD Anxiety Depression Migraine <Felix Girard MD - Last Filed: 03/11/24 07:24> Family History Family History: Family History Sibling Asthma Grandparent Alcoholism Grandparent Cerebrovascular accident Mother Anxiety and depression <Felix Girard MD - Last Filed: 03/11/24 07:24> Social History Social History: Social History Smoking packs per day: 1 Smoking cigarettes per day: 20.0 Years smoked: 11 Smoking pack-years: 11.00 Smoking status: Current every day smoker Tobacco type: cigarettes Alcohol intake: former Substance use: current Substance use type: inhalants Other substance usage details: nothing since coming out of rehab Lack of Transportation: No Lack of Food: Never True Current Housing: I Have Housing Concerned About Future Housing: No Difficulty Paying Gas/Electric Bills: YES Difficulty Paying for Meds: No Currently Unemployed: No Education: Bachelor's Degree Difficulty w/ Childcare or Family Care: No <Felix Girard MD - Last Filed: 03/11/24 07:24> Exam Narrative: GENERAL: Well-appearing, well-nourished, and in no acute distress. HEAD
--- NOTE | 2024-03-09 19:57 | PC.NURSE ---
Patient in hallway, requesting to speak to provider and to leave. Patient informed that he made statements to harm himself earlier today and that he needs to be evaluated by Crisis. ERP speaking with patient. Patient states he needs something for his anxiety. ERP placing orders.
[2024-03-09] MEDS: LORazepam INJ (*CRX) 2 MG/ML VIAL 1 MG IM (20:15)
--- NOTE | 2024-03-09 20:15 | PC.NURSE ---
1 mg IM ativan given in left deltoid for anxiety. Patient cooperative, verbalized understanding of need to wait for ETOH level to be normal to be evaluated by Crisis. Sitter remains at bedside.
[2024-03-10 03:21] LABS: Ethanol 151 mg/dL (<10)
--- NOTE | 2024-03-10 03:36 | PC.NURSE ---
This RN and ERP went to speak with patient that his etoh level is still elevated and he still needs to wait for his level to be at the legal limit or below. Patient states I need something for anxiety, its getting out of hand. ERP states she will order meds for anxiety. Patient agreeable to IM shot. Patients girlfriend arrives back at bedside.
[2024-03-10] MEDS: HALOPERIDOL LACTATE 5 MG/ML VIAL 2.5 MG IM (03:38)
[2024-03-10] MEDS: LORazepam INJ (*CRX) 2 MG/ML VIAL 1 MG IM (03:38)
--- NOTE | 2024-03-10 03:38 | PC.NURSE ---
Patient given IM haldol and IM ativan for anxiety in left deltoid. Patient tolerated well and was cooperative. Patient states I am nauseous, can you ask the doctor for something for that. This RN informed ERP of patients nausea, new orders placed.
[2024-03-10] MEDS: FAMOTIDINE 20 MG TABLET PO (03:44)
[2024-03-10] MEDS: ONDANSETRON HCL ODT 4 MG TABLET PO (03:44)
[2024-03-10 04:11] VITALS: BP 115/74; PULSE 80; RESP 17; TEMP 36.5; O2SAT 100
--- NOTE | 2024-03-10 05:17 | PC.NURSE ---
Patients visitor at bedside and given a recliner upon request. Patients visitor also given blanket. Patient resting in room with eyes closed, visible chest rise and fall, no acute distress noted. Patient has sitter at bedside.
--- NOTE | 2024-03-10 07:13 | PC.NURSE ---
breakfast tray ordered at this time
[2024-03-10 07:22] LABS: Ethanol 38 mg/dL (<10)
== END 2024-03-10 11:30 | disposition home or self-care (01) ==
PROVIDERS: Emergency Medicine; Emergency Provider Family Medicine; PCP Family Medicine
DX: R45.851 Suicidal ideations (principal); F10.229 Alcohol dependence with intoxication, unspecified; Y90.8 Blood alcohol level of 240 mg/100 ml or more; F41.9 Anxiety disorder, unspecified; F32.A Depression, unspecified; F90.9 Attention-deficit hyperactivity disorder, unspecified type; F17.210 Nicotine dependence, cigarettes, uncomplicated; Z11.52 Encounter for screening for COVID-19
CPT/HCPCS: 36415; 80053; 80307; 81003; 84443; 85025; 87637; 96372; 99284; A9270; J1630; J2060

== ENCOUNTER 2024-10-19 08:58 | Outpatient (CLI) | payer OTHER, SELFPAY ==
[2024-10-19 18:09] LABS: Basophils Absolute Auto 0.1 K/mm3 (0.0-0.1); Basophils Percent Auto 0.8 % (0.2-1.2); Eosinophils Absolute Auto 0.2 K/mm3 (0-0.3); Eosinophils Percent Auto 2.4 % (0-4.4); Hematocrit 44.7 % (42.0-52.0); Hemoglobin 15.1 g/dL (14.0-18.0); Immature Granulocyte Absolute 0.01 K/mm3 (0.00-0.031); Immature Granulocyte Percent A 0.2 % (0-0.5); Lymphocytes Absolute Auto 2.48 K/mm3 (0.9-3.2); Lymphocytes Percent Auto 39.4 % (18.3-44.2); Mean Corpuscular HGB Conc 33.8 g/dl (32-36); Mean Corpuscular Hemoglobin 29.8 pg (26-34); Mean Corpuscular Volume 88.3 fl (80-100); Mean Platelet Volume 10.1 fl (7.4-10.4); Monocytes Absolute Auto 0.5 K/mm3 (0.1-0.6); Monocytes Percent Auto 7.6 % (2.6-8.5); Neutrophils Absolute Auto 3.1 K/mm3 (1.3-6.7); Neutrophils Percent Auto 49.6 % (45.5-73.1); Platelet Count Result 265 k/mm3 (150-375); Red Blood Count 5.06 M/mm3 (4.6-6.20); Red Cell Distribution Width 12.9 % (11.5-14.5); White Blood Count 6.3 K/mm3 (4.5-10.0)
[2024-10-19 18:20] LABS: Alanine Aminotransferase 22 U/L (6-50); Alkaline Phosphatase 62 U/L (38-126); Anion Gap 4 mmol/L (4-12); Aspartate Amino Transferase 53 U/L (17-59); Bilirubin,Total 0.5 mg/dL (0.2-1.3); Blood Urea Nitrogen 13 mg/dL (9-20); Carbon Dioxide 30 mmol/L (22-30); Chloride 107 mmol/L (98-107); Cholesterol 95 mg/dL (0-200); Estimated Glomerular Filt Rate > 60; Glucose 86 mg/dL (65-110); HDL Direct 29 mg/dL; Magnesium 2.2 mg/dL (1.6-2.3); Potassium 4.5 mmol/L (3.4-5.0); Sodium 141 mmol/L (137-145); Triglycerides 48 mg/dL (<150)
[2024-10-19 18:31] LABS: LDL Cholesterol Direct 50 mg/dL
[2024-10-19 18:46] LABS: Free T4 Free Thyroxine 1.16 ng/dL (0.78-2.19); Vitamin D 25 Hydroxy 36.2 ng/mL
[2024-10-19 20:09] LABS: Folic Acid > 20.0 ng/mL (2.76->20)
[2024-10-27 14:03] LABS: Vitamin B1 <6 nmol/L (8-30)
== END 2024-10-19 08:59 | disposition home or self-care (01) ==
PROVIDERS: PCP Family Medicine; Visit Provider Family Medicine
DX: Z13.220 Encounter for screening for lipoid disorders (principal); F10.20 Alcohol dependence, uncomplicated; R63.4 Abnormal weight loss; D55.9 Anemia due to enzyme disorder, unspecified; R53.83 Other fatigue; R73.9 Hyperglycemia, unspecified
CPT/HCPCS: 36415; 80053; 80061; 82306; 82607; 82746; 83735; 84425; 84439; 84443; 85025